=== PATIENT | female | born 1995 | race American Indian/Alaskan Native ===

== ENCOUNTER 2019-07-15 01:08 | Inpatient (IN) | payer OTHER ==
[2019-07-15] MEDS ORDERED: Sodium Chloride 0.9% 10 ML Syringe FLUSH PRN (01:36)
[2019-07-15] MEDS ORDERED: Lidocaine 1% 30 ML SDV INJECT PRN (01:36)
[2019-07-15] MEDS ORDERED: Tranexamic Acid 1,000 MG in Sodium Chloride 0.9% 100 ML IV PRN (01:36)
[2019-07-15] MEDS ORDERED: Lactated Ringers 1,000 ML IV ONE (01:36)
[2019-07-15] MEDS ORDERED: fentaNYL 100 MCG/2 ML SDV IVPUSH PRN (01:36)
[2019-07-15] MEDS ORDERED: Misoprostol 400 MCG (4 X 100 MCG TAB) RECTAL PRN (01:36)
[2019-07-15] MEDS ORDERED: Methylergonovine 0.2 MG/1 ML Amp IM PRN (01:36)
[2019-07-15] MEDS ORDERED: Acetaminophen 325 MG Tab PO PRN (01:36)
[2019-07-15] MEDS ORDERED: Carboprost Tromethamine 250 MCG/1 ML Amp IM PRN (01:36)
[2019-07-15] MEDS ORDERED: Ondansetron 4 MG/2 ML SDV IV PRN (01:36)
[2019-07-15] MEDS ORDERED: Nalbuphine 10 MG/1 ML Vial IM PRN (01:42)
[2019-07-15] MEDS ORDERED: hydrOXYzine HCl 25 MG Tab PO PRN (01:42)
[2019-07-15] MEDS ORDERED: Oxytocin/Normal Saline 30 UNIT/500 ML BAG IV SCH (01:45)
[2019-07-15 02:51] LABS: CHLORIDE,CL 105 mmol/L (101-111); SODIUM,NA 135 mmol/L (135-145)
[2019-07-15] MEDS: Lactated Ringers 1,000 ML IV SCH ×3 (03:40→15:46)
--- NOTE | 2019-07-15 09:05 | HP ---
CHIEF COMPLAINT: Regular contractions. HISTORY OF PRESENT ILLNESS: The patient is a 23-year-old, 1, para 0, currently at 40 and 2/7 weeks gestation based on 10-week ultrasound, who presents to Labor and Delivery after reporting contractions starting around 11 p.m. on the and became more regular and stronger around 12:30 a.m. She reports some passage of mucousy discharge and no initial bleeding, but had some mild bleeding after her 1st vaginal check here. movement has been good. No chest pain, shortness of breath, headaches, blurry vision, change in her edema, right upper quadrant pain, cough, cold symptoms, or other concerns. She reports this has been uncomplicated. She has been watched for high blood pressures and baby has been noted to be measuring a little bit large. She was scheduled for induction later on this week. records show excellent dating and prior treatment with fluconazole, Zofran, and metronidazole for yeast, nausea, and bacterial vaginosis. She did receive her Tdap and influenza vaccines in April. She is rubella nonimmune. She has had anemia of and reports she is taking her iron. growth was 85th percentile at the end of May and 78th percentile near the end of June. Otherwise, blood type is O positive. Syphilis serologies, hepatitis B, HIV, hepatitis C, gonorrhea and chlamydia were all negative. Glucose tolerance test was normal with a value of 89. She did have some glucosuria noted at her 37- week visit. Total weight gain for her is only about 13 pounds. See EPIC notes for other details. PAST MEDICAL HISTORY: Methicillin-resistant Staphylococcus aureus infection, recurrent sinusitis, history of wheezing with bronchitis in the past, and childhood obesity. FAMILY HISTORY: Mother with a history of deliveries due to incompetent cervix. No actual miscarriages or stillbirths. She also has diabetes, anemia, and endometriosis. Maternal aunt had preeclampsia and is a carrier for Factor V Leiden and also had endometriosis. Several maternal relatives have had hysterectomies for dysfunctional uterine bleeding. Maternal cousin has both Factor V Leiden and von Willebrand's. Her father has diabetes, hypertension, and glaucoma. Her paternal grandparents have diabetes, hypertension, heart disease. Her maternal grandparents; grandfather had at a young age, and grandmother, they really were not certain of her history. PAST SURGICAL HISTORY: [place] teeth. SOCIAL HISTORY: The patient works in the [employer] at the [employer]. Father of the baby Hitesh Willis is involved. He is reportedly alive and well. His father is , but had diabetes, hypertension, and heart disease. Hitesh's mother has diabetes, hypertension with , and a history of some abnormal bleeding, possible bleeding disorder. The patient lives with her boyfriend and a female roommate in an apartment here in town. There are no pets in the apartment. The friend does smoke outside. MEDICATIONS: Iron and vitamin. ALLERGIES: Keflex causes hives. PHYSICAL EXAMINATION: GENERAL: This is a pleasant 23-year-old female, resting comfortably on the hospital bed. VITAL SIGNS: Weight 103.4 kg, height 5 feet 6 inches, pulse 93, blood pressure 142/82, and she is afebrile. Recheck blood pressures have been normal, most current 123/65, temperature is 97.3. HEENT: Grossly unremarkable. HEART: Regular without murmur. LUNGS: Clear to auscultation bilaterally. ABDOMEN: Soft, nontender. Bowel sounds are positive. GENITOURINARY: heart rate currently tracing at 145 beats per minute for baseline. Moderate hujf-hd-lhxj variability. Accelerations are noted. [place] showing contractions every 4 to 6 minutes. Cervix examined, on admission she was 4 cm, now she is 5 cm, about 75% effaced, anterior and to the maternal left. head was well applied and artificial rupture of membranes was performed with return of some serosanguineous fluid. EXTREMITIES: No edema, erythema, or tenderness. LABORATORY DATA: Hemoglobin 11.0, platelets 251. Complete metabolic profile remarkable for ALT of 9, alkaline phosphatase 193, and albumin of 2.9. Otherwise within normal limits. Protein-creatinine ratio is 0.12. ASSESSMENT: 1. 1, para 0, at 40 and 2/7 weeks gestation. 2. Rubella nonimmune. 3. Blood type O positive. 4. Group B Strep negative. 5. Anemia of . 6. Excessive growth. 7. History of methicillin-resistant Staphylococcus aureus. 8. Elevated blood pressures on admission, now resolved, and PIH labs negative. 9. Hypoalbuminemia. Artificial rupture of membranes performed to help her with her labor progress, 40 and 2/7 weeks gestation. PLAN: At this time, the patient is going to attempt labor without any medications for pain. She is specifically concerned about having an intrathecal because she has a history of some back pain and muscle spasms and she is fearful the intrathecal could make things worse, so she will see how she does laboring without an intrathecal, but will likely accept IV pain meds and nitrous oxide. We will watch her closely and make changes to the plan as necessary. Dr. Brantley, the patient's PCP should be back in town later on today, and I will transfer care to her at that time. [facility] /[id number]
[2019-07-15] MEDS ORDERED: EPINEPHrine 1 MG/1 ML Amp ONE (12:59)
[2019-07-15] MEDS ORDERED: fentaNYL 100 MCG/2 ML SDV ONE (12:59)
--- NOTE | 2019-07-15 13:34 | PCM.PRNOTE ---
- Free Text/Narrative Note: Requested to provide analgesia to full term patient in severe pain. Upon entering the room, patient is sitting on edge of bed complaining of severe abdominal/pelvic pain and discomfort. Procedure was discussed with patient including adverse outcomes and expectations. Pt consented to analgesia, SAB/ IT. Pt placed into a proper sitting position. Landmarks for SAB/IT were identified and marked. Hands were washed and appropriate PPE was applied. Back was prepped with betadine x3. A sterile, transparent, fenestrated drape was applied. Excess betadine was removed. Using 3 mL of a 1% lidocaine solution , a skin wheel was placed at the L2/L3 interspace. A 24 ga (4 inch) [place] spinal needle was inserted until positive for CSF. Negative for heme or paresthesias. Injected fentanyl 30 mcg, sufentanil 25 mcg, and 7.5 mg of a 0.75 % bupivacaine solution with an epi wash. Pt was placed left lateral position for approximately 20 minutes. There were zero complications or adverse outcomes. Will continue to monitor. Procedure Date & Time: 07/15/19 [id number]
--- NOTE | 2019-07-15 14:50 | PN ---
DATE: 07/15/2019 SUBJECTIVE: The patient is now comfortable with her intrathecal in place. Just prior to this, she had been too uncomfortable to tolerate contractions, was moving frequently, making it difficult to trace the baby and even get adequate tracing of the contractions. OBJECTIVE: Vital Signs: Blood pressure 119/76, pulse of 94, she is afebrile. Genitourinary: Cervix remains 5 cm dilated, 90% effaced, baby is down to maybe 0 station at this time. Head is well applied and caput is present. This is a change from when I had checked her this morning, although she is not as dilated as I would like her to be. [place]: Contractions look like they are about every 3 minutes. ASSESSMENT: 1. 1, para 0. 2. 40 and 2/7 weeks gestation. 3. Rubella nonimmune, blood type O positive, group B Strep negative. 4. Anemia of . 5. Hypoalbuminemia. 6. History of methicillin-resistant Staphylococcus aureus. 7. Elevated blood pressures with negative PIH labs. 8. Slow progress in labor. PLAN: Hopefully, baby's tracing will improve now that we have mother resting and comfortable, and we will be able to initiate some Pitocin to help labor progression at this time. I advised her to get some rest while possible and advised that she can be pushing for up to 3 to 4 hours as she is a first-time mother with intrathecal. Also, discussed with her potential risk for section including but not limited to risk of infection and plan for preoperative antibiotics, risk of bleeding with risk of blood transfusion and its inherent risks, risk of injury to internal organs and adjacent structures including but not limited to, large blood vessels, nerves, veins, uterus, ovaries, fallopian tubes, bladder, intestines, and any other adjacent structures, potential injury to the baby, potential for unforeseen complications resulting in injury to her and/or the baby and need to a hospital with higher level of care, also remote risk of . The patient's questions have been answered. [facility] /[id number]
[2019-07-15] MEDS ORDERED: Benzocaine/Menthol 20%-0.5% Spray 56 GM Canister TOP PRN (17:54)
[2019-07-15] MEDS ORDERED: Measles, Mumps & Rubella Vaccine 0.5 ML SDV SUBCUT ONE (17:54)
[2019-07-15] MEDS ORDERED: Simethicone 80 MG Tab.Chew PO PRN (17:54)
[2019-07-15] MEDS: Docusate Sodium 100 MG Cap PO PRN (19:13)
[2019-07-15] MEDS: Ibuprofen 800 MG Tab PO PRN (19:14)
--- NOTE | 2019-07-16 01:23 | DEL ---
DATE: 07/15/2019 PREPROCEDURE DIAGNOSES: 1. 40-2/7 weeks' intrauterine based on 10-week ultrasound. 2. 1, para 0. 3. Rubella immune. 4. Blood type O positive. 5. Group B strep negative. 6. Anemia of . 7. History of MRSA. 8. Elevated blood pressures with negative -induced hypertension lab. 9. Suspicion for macrosomia. However, negative testing for gestational diabetes including an admission glucose of 100. 10.Hypoalbuminemia. POSTPROCEDURE DIAGNOSES: 1. 40-2/7 weeks' intrauterine based on 10-week ultrasound. 2. 1, para 1-0-0-1. 3. Rubella immune. 4. Blood type O positive. 5. Group B strep negative. 6. Anemia of . 7. History of MRSA. 8. Elevated blood pressures with negative -induced hypertension lab. 9. Suspicion for macrosomia. However, negative testing for gestational diabetes including an admission glucose of 100. 10.Hypoalbuminemia. 11.Arrest of descent. 12.Maternal exhaustion. 13.Status post vacuum-assisted vaginal delivery. 14.Status post third-degree laceration repair. BRIEF HISTORY: A 23-year-old female admitted to the hospital with spontaneous onset of labor, underwent artificial rupture of membranes, and approximately 8 hours later was complete and started pushing. See her history and physical for full details. Pertinent diagnoses are as above. The patient's tracing during labor was primarily category 2 with limited accelerations, however, making good cervical change and not requiring augmentation. Therefore, labor was allowed to proceed. DETAILS: With the patient in dorsal lithotomy position, she had been anesthetized with intrathecal and was comfortable. She had been pushing for an hour and a half, and was suffering from maternal exhaustion, not likely to be able to proceed much longer. We had also reached arrest of descent with maternal pushing efforts. Exit strategy was available with operating room crew in-house as they were holding on a surgical case until after our delivery was completed. The patient had had adequate rest. She was having adequate contraction strength. Her bladder was empty. She was verbally consented with family in the room for indication of vacuum and expectation of increased vaginal/labial trauma; potential risks to the baby including scalp lacerations, intracranial bleeding, hemorrhaging and other complications; potential for increased risk of shoulder dystocia, increased risk of emergent need of section, and other complications. The patient verbally agreed to proceed as noted here. The probability of success was good. Baby was coming down through the canal well. Although baby was estimated to be large for gestational age, adequate pelvis was there. Baby was in the OA position. We did question if there was some asynclitism presentation and application of the vacuum was +3. Maximum application time and pop-offs had been predetermined. Maximum pressure was kept within the green zone and not exceeded. Total application time approximately 15 minutes as vacuum had been applied. There were 2 pop-offs. I took a break for a few contractions while Dr. Avery was present and was requested to help with further assessment, and during that time, I reapplied the vacuum and we successfully had a vaginal delivery. Total number of times the cup popped off was 3. Vacuum type used was Kiwi as well as the low-profile OmniCup. With the Kiwi, the cup disengaged once just because of loss of suction. First pop-off was also due to loss of suction followed by the actual pop-off itself, at which time I had switched to the low-profile cup and had 1 pop-off there, took a break from vacuum and then tried again prior to the actual delivery. Dr. Avery was en route for the delivery; however, I did manage to get the baby delivered before she arrived in a few short minutes. With the patient in dorsal lithotomy position and low-profile vacuum in place, mother delivered a viable vhutd-uai-weojhchlnhv-age female over intact perineum. Once the baby was delivered, vacuum removed and baby dried, stimulated; initially had a good cry and then readily became floppy. In order to have both hands available, I placed baby on mother's abdomen, quickly doubly clamped and cut the 3-vessel umbilical cord, and took baby to the warmer for immediate resuscitation. The nurses were doing well with the baby and baby was coming around quite quickly. Therefore, cord sample was obtained. Placenta decompressed and delivered by gentle cord traction and concomitant uterine massage. Bleeding was well controlled with good uterine tone. There was a third-degree laceration, which was repaired with 3-0 Vicryl in the usual fashion. The patient did not require any additional anesthesia as her intrathecal was working well. Mother overall tolerated the procedure very well. COMPLICATIONS: None. ESTIMATED BLOOD LOSS: 300 mL. DISPOSITION: Mother and baby to remain in the delivery room, so mother can start some . FINDINGS: Viable female , score of 3 and 8. Weight 4295 g, 9 pounds 5 ounces; length 20 inches; head circumference 13-1/2 inches; chest circumference 13 inches. [facility] /[id number]
[2019-07-16] MEDS: Ibuprofen 800 MG Tab PO PRN ×2 (03:19→15:48)
[2019-07-16] MEDS: Docusate Sodium 100 MG Cap PO PRN ×2 (08:08→21:52)
[2019-07-16] MEDS: Ferrous Sulfate 325 MG Tab PO SCH (08:08)
[2019-07-16] MEDS: Prenatal Multivitamin with Calcium/Folic Acid/Iron Tab PO SCH (08:08)
--- NOTE | 2019-07-16 11:45 | PCM.SN ---
- Free Text/Narrative Note: Post Delivery Day #1 07/16/19 Subjective: Patient is ambulating without assistance and tolerating oral intake. Her pain has been well-controlled, and her bleeding has been minimal. She has not had nausea, vomiting, blurred vision, diarrhea, shortness of breath, or any other complaints. She is . Objective: Vitals stable Gen: No distress CV: Well-perfused, 2+ distal pulses Resp: Non-labored, symmetrical chest expansion Abd: Fundus is firm and below umbilicus. Ext: Moves all extremities Well, no edema. Assessment: Status post VAVD ( day #1) with repaired 3rd degree perineal laceration who is doing well Plan: - Routine nursing - vitamin - Likely discharge tomorrow - Will follow closely Aicha Brantley MD
[2019-07-16] MEDS ORDERED: Lactated Ringers 1,000 ML IV STA (16:43)
[2019-07-16] MEDS ORDERED: fentaNYL 100 MCG/2 ML SDV IVPUSH STA (16:43)
[2019-07-17] MEDS: Ibuprofen 800 MG Tab PO PRN ×2 (00:42→08:06)
[2019-07-17] MEDS: Docusate Sodium 100 MG Cap PO PRN (08:06)
[2019-07-17] MEDS: Ferrous Sulfate 325 MG Tab PO SCH (08:06)
[2019-07-17] MEDS: Prenatal Multivitamin with Calcium/Folic Acid/Iron Tab PO SCH (08:06)
--- NOTE | 2019-07-17 09:27 | PCM.SN ---
- Free Text/Narrative Note: Progress Note/Discharge Summary Admit date: 07/15/19 Discharge date: 07/17/19 Delivering Physician: Dr. Fernandez Discharging Physician: Dr. Brantley Admission Diagnoses: 23 y/o G1 at 40w2d EGA Anemia of Active Labor Summary of Hospital Course: Savannah is a 23yo G1 at 40w2d who presented to labor and delivery on 07/15/19 around 0100 in active labor that started earlier that night. She underwent vacuum assisted vaginal delivery, for arrest of descent and maternal exhaustion , and delivered a viable weighing 4295 grams with Apgars of 3 and 8 at 1 and 5 minutes respectively. EBL was 300 mL. The patient had an unremarkable course except for 1 episode of acute severe left lower quadrant pain that started about 1615 on day 1. US was performed to rule out ovarian torsion, good blood flow was noted. She was given fentanyl for pain relief which helped and the pain did not return for the rest of her stay. By day 2, the patient was doing well; ambulating, voiding, and tolerating general diet. Her pain was well controlled with oral pain medications , and was she was discharged to home. Admission hemoglobin was 11.0 gm/dL. Discharge hemoglobin was 9.6 gm/dL. Discharge Exam: Gen: No distress, well nourished CV: Well-perfused, 2+ distal pulses Resp: Non-Labored, symmetrical chest expansion Abd: Fundus is firm and below umbilicus. Appropriately tender to palpation Ext: Moves all extremities well, no edema. Discharge (or Final) Diagnoses: 1. Intrauterine at 40w2d 2. Vacuum Assisted Vaginal Delivery 3. Anemia of Discharge Details: Admission Condition: good Discharged Condition: good Disposition: Home Discharge Medications: over the counter ibuprofen Diet: regular diet Activity: no heavy lifting for 2 weeks, pelvic rest for 6 weeks. Follow-up with Dr. Brantley in 6-8 weeks for visit. Aicha Brantley MD
[2019-07-17] MEDS ORDERED: fentaNYL 100 MCG/2 ML SDV ITHECAL ONE (11:29)
[2019-07-17] MEDS ORDERED: EPINEPHrine 1 MG/1 ML Amp ONE (11:29)
== END 2019-07-17 14:00 | disposition home or self-care (01) | DRG 768 ==
LOC: DL.OBCHECK 01:08 → OBSVTOIN 01:36 → DL.OB 01:36
PROVIDERS: ADMIT Family Medicine; ATTEND Family Medicine
PROC: 10D07Z6 Extraction of Products of Conception, Vacuum, Via Natural or Artificial Opening (ICD-10-PCS; principal; 2019-07-15)
PROC: 0DQR0ZZ Repair Anal Sphincter, Open Approach (ICD-10-PCS; 2019-07-15)
PROC: 10907ZC Drainage of Amniotic Fluid, Therapeutic from Products of Conception, Via Natural or Artificial Opening (ICD-10-PCS; 2019-07-15)
PROC: 3E0234Z Introduction of Serum, Toxoid and Vaccine into Muscle, Percutaneous Approach (ICD-10-PCS; 2019-07-15)
DX: O48.0 Post-term pregnancy (principal); Z37.0 Single live birth; O70.20 Third degree perineal laceration during delivery, unspecified; O75.81 Maternal exhaustion complicating labor and delivery; O99.02 Anemia complicating childbirth; D64.9 Anemia, unspecified; O99.284 Endocrine, nutritional and metabolic diseases complicating childbirth; E88.09 Other disorders of plasma-protein metabolism, not elsewhere classified; R03.0 Elevated blood-pressure reading, without diagnosis of hypertension; Z23 Encounter for immunization; Z3A.40 40 weeks gestation of pregnancy
CPT/HCPCS: 36415; 59300; 59409; 76856; 80053; 82570; 82947; 83615; 84156; 84550; 85027; 90471; 90707; 93975; A9270-GY; J0171; J2405; J2590; J3010; J7120

== ENCOUNTER 2020-10-23 11:59 | Emergency (ER) | payer MEDICAID, OTHER ==
--- NOTE | 2020-10-23 12:19 | EDM.PDOC ---
ED HPI GENERAL MEDICAL PROBLEM - General Stated Complaint: TOP RIGHT TOOTH. SENSITIVE / HURT Time Seen by Provider: 10/23/20 12:18 Source of Information: Reports: Patient, RN, RN Notes Reviewed History Limitations: Reports: No Limitations - History of Present Illness INITIAL COMMENTS - FREE TEXT/NARRATIVE: Patient presents to the ED via personal vehicle for complaints of pain to the sixth and seventh teeth. The patient reports the pain began approximately three days ago following her daughter accidentally striking her in the mouth with her head. She states she has trialed ibuprofen, Tylenol, salt water gargles, ice packs, and hot packs which have offered her [id number] relief of pain. She feels as though the pain is progressively worsening and characterizes the pain as an "ache." She rates the pain to these teeth as a 10/10. 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 ED EXAM, ENT - Physical Exam Exam: See Below Exam Limited By: No Limitations General Appearance: Alert, Anxious, Mild Distress (Oral pain) Eye Exam: Bilateral Eye: EOMI, Normal Inspection, PERRL (2mm) Ears: Normal External Exam, Normal Canal, Hearing Grossly Normal, Normal TMs Nose: Normal Inspection, Normal Mucousa, No Blood Mouth/Throat: Normal Teeth, Dental Pain, Dental Tenderness, Gum Swelling (To sixth and seventh teeth, anterior and posterior with erythema present to gum), Other (No throat swelling, oral ulcers, lip ulcers, pharyngeal erythema, bleeding, dental trauma, or abscess) Neck: Normal Inspection, Supple, Non-Tender, Full Range of Motion, Other (No lymphadenopathy) Respiratory/Chest: No Respiratory Distress, Lungs Clear, Normal Breath Sounds, No Accessory Muscle Use, Chest Non-Tender Cardiovascular: Normal Peripheral Pulses, Regular Rate, Rhythm, No Edema, No Gallop, No JVD, No Murmur, No Rub Neurological: Alert, Oriented, CN II-XII Intact, Normal Cognition, Normal Gait, No Motor/Sensory Deficits Psychiatric: Anxious Skin: Warm, Dry, Intact, No Rash, Erythema (To sixth and seventh gum), Other (No abscess or wound noted) Lymphatic: No Adenopathy Course - Vital Signs Last Recorded V/S: Last Vital Signs Temp 97.2 F 10/23/20 12:20 Pulse 122 H 10/23/20 12:20 Resp 16 10/23/20 12:20 BP 153/83 H 10/23/20 12:20 Pulse Ox 99 10/23/20 12:20 - Orders/Labs/Meds Meds: Medications Discontinued Medications Generic Name Dose Route Start Last Admin Trade Name Freq PRN Reason Stop Dose Admin Lidocaine HCl 15 ml 10/23/20 12:33 10/23/20 12:40 Lidocaine 2% Viscous Solution 15 Ml Cup PO 10/23/20 12:34 15 ml ONETIME ONE Administration - Re-Assessments/Exams Free Text/Narrative Re-Assessment/Exam: 10/23/20 Patient verbalized improvement in pain to teeth following viscous lidocaine. Discussed findings of gingivitis upon examination, no open oral lesions, trauma, or abscess appreciated. Reviewed the importance of dental health and establishing with a dental home. Red flag signs and symptoms with would warrant reevaluation reviewed. Patient verbalized understanding and agreement with the plan of care. Departure - Departure Time of Disposition: 12:37 Disposition: Home, Self-Care 01 Condition: Good Clinical Impression: Gingivitis - Discharge Information *PRESCRIPTION DRUG MONITORING PROGRAM REVIEWED*: Not Applicable *COPY OF PRESCRIPTION DRUG MONITORING REPORT IN PATIENT SARAI: Not Applicable Referrals: Linda Duarte MD [Primary Care Provider] - Forms: ED Department Discharge Additional Instructions: Rx: Viscous lidocaine 1.) Apply to affected area every four hours, as pain persists. 2.) Follow up with dentist early this week. 3.) You may take ibuprofen (Advil/Motrin) 400mg every six hours, as pain and swelling persists. You may also take acetaminophen (Tylenol) 650mg every six hours, as pain persists. You may stagger these medications so you are receiving a dose every three hours. 4.) Eat a soft diet while you are experiencing tooth pain.
[2020-10-23] MEDS ORDERED: Lidocaine 2% Viscous Solution 15 ML Cup PO ONE (12:33)
== END 2020-10-23 12:43 | disposition home or self-care (01) ==
LOC: DL.ED 11:59
DX: K05.10 Chronic gingivitis, plaque induced (principal); Z88.1 Allergy status to other antibiotic agents
CPT/HCPCS: 99282; 99283; A9270

== ENCOUNTER 2021-05-28 12:42 | Emergency (ER) | payer MEDICAID ==
--- NOTE | 2021-05-28 15:24 | EDM.PDOC ---
ED HPI GENERAL MEDICAL PROBLEM - General Chief Complaint: Respiratory Problem Stated Complaint: tested COVID positive Wed. Time Seen by Provider: 05/28/21 15:20 Source of Information: Reports: Patient History Limitations: Reports: No Limitations - History of Present Illness INITIAL COMMENTS - FREE TEXT/NARRATIVE: 25 y/o F c/o fatigue, cough, sob and decreased appetite since Saturday. Pt was then diagnosed with COVID on Saturday. She has been drinking lots of water. She reports she is 8 weeks and the COVID and have left her extremely fatigued. She denies gu, vision prob, abd pn, pelvic pn, vaginal discharge, diff voiding, constipation, trauma, fever, extremity pn. - Related Data Allergies Allergy/AdvReac Type Severity Reaction Status Date / Time cephalexin [From Keflex] Allergy Hives Verified 10/23/20 12:20 Home Meds: Home Meds Ferrous Sulfate [Iron] 325 mg PO DAILY 07/14/18 [History] #103/Iron Fumarate/Fa [ ] 1 tab PO DAILY 05/31/19 [History] Past Medical History - Past Health History Medical/Surgical History: Denies Medical/Surgical History HEENT History: Reports: None [employer] History: Reports: Hematologic History: Reports: Anemia - Past Surgical History HEENT Surgical History: Reports: Oral Surgery Social & Family History - Family History Family Medical History: No Pertinent Family History - Tobacco Use Tobacco Use Status *Q: Unknown Ever Used Tobacco - Caffeine Use Caffeine Use: Reports: Coffee, Soda - Recreational Drug Use Recreational Drug Use: No ED ROS GENERAL - Review of Systems Review Of Systems: Comprehensive ROS is negative, except as noted in HPI. ED EXAM, GENERAL - Physical Exam Exam: See Below Exam Limited By: No Limitations General Appearance: Alert, No Apparent Distress Ears: Normal External Exam, Normal Canal, Hearing Grossly Normal, Normal TMs Nose: Normal Inspection, Normal Mucosa, No Blood Throat/Mouth: Normal Inspection, Normal Lips, Normal Teeth, Normal Gums, Normal Oropharynx, Normal Voice, No Airway Compromise Head: Atraumatic, Normocephalic Neck: Supple, Non-Tender Respiratory/Chest: No Respiratory Distress, Lungs Clear, Normal Breath Sounds Cardiovascular: Normal Peripheral Pulses, Tachycardia GI/Abdominal: Soft, Non-Tender (Female) Exam: Deferred Rectal (Female) Exam: Deferred Back Exam: Normal Inspection Extremities: Normal Inspection, Normal Range of Motion, Non-Tender, No Pedal Edema, Normal Capillary Refill Neurological: Alert, Oriented, CN II-XII Intact, Normal Cognition, Normal Gait, Normal Reflexes, No Motor/Sensory Deficits Psychiatric: Normal Affect, Normal Mood Skin Exam: Warm, Dry, Intact, Normal Color, No Rash Course - Vital Signs Last Recorded V/S: Last Vital Signs Temp 98.1 F 05/28/21 14:59 Pulse 111 H 05/28/21 13:17 Resp 16 05/28/21 13:17 BP 147/88 H 05/28/21 13:17 Pulse Ox 100 05/28/21 13:17 - Orders/Labs/Meds Orders: Active Orders 24 hr Category Date Time Status CHLAMYDIA/GC NUCLEIC ACID AMP [MREF] Stat Lab 05/28/21 17:08 Ordered CULTURE URINE [RM] Stat Lab 05/28/21 15:30 Received Labs: Laboratory Tests 05/28/21 05/28/21 05/28/21 Range/Units 15:30 15:30 15:56 WBC 5.7 (5.0-10.0) 10^3/uL RBC 4.85 (4.2-5.4) 10^6/uL Hgb 13.5 D (12.0-16.0) g/dL Hct 41.4 (37.0-47.0) % MCV 85.4 (80-100) fL MCH 27.8 (27.0-34.0) pg MCHC 32.6 L (33.0-35.0) g/dL Plt Count 227 (150-450) 10^3/uL Neut % (Auto) 69.9 (42.2-75.2) % Lymph % (Auto) 19.5 L (20.5-50.1) % [place] % (Auto) 10.2 H (2-8) % Eos % (Auto) 0.2 L (1.0-3.0) % Baso % (Auto) 0.2 (0.0-1.0) % Sodium (136-145) mmol/L Potassium (3.5-5.1) mmol/L Chloride (98-107) mmol/L Carbon Dioxide (21-32) mmol/L Anion Gap (7-13) mEq/L BUN (7-18) mg/dL Creatinine (0.55-1.02) mg/dL Est Cr Clr Drug Dosing mL/min Estimated GFR (MDRD) BUN/Creatinine Ratio (No establ ref range) Glucose (70-99) mg/dL Calcium (8.5-10.1) mg/dL Magnesium (1.8-2.4) mg/dL Total Bilirubin (0.2-1.0) mg/dL AST (15-37) U/L ALT (14-59) U/L Alkaline Phosphatase (46-116) U/L Total Protein (6.4-8.2) g/dL Albumin (3.4-5.0) g/dL Globulin Albumin/Globulin Ratio Urine Color Yellow (YELLOW) Urine Appearance Turbid (CLEAR) Urine pH 6.0 (5.0-9.0) Ur Specific Club[place] >= 1.030 (1.005-1.030) Urine Protein 30 H (NEGATIVE) Urine Glucose (UA) Negative (NEGATIVE) Urine Ketones >=160 H (NEGATIVE) Urine Occult Blood Trace-intact H (NEGATIVE) Urine Nitrite Negative (NEGATIVE) Urine Bilirubin Negative (NEGATIVE) Urine Urobilinogen 0.2 (0.2-1.0) mg/dL Ur Leukocyte Esterase Large H (NEGATIVE) Urine RBC 0-5 (0-5) /HPF Urine WBC 0-5 (0-5/HPF) /HPF Ur Epithelial Cells Many H (NOT SEEN) /HPF Urine Bacteria Many H (0-FEW/HPF) /HPF Urine Opiates Screen Negative (NEGATIVE) Ur Oxycodone Screen Negative (NEGATIVE) Urine Methadone Screen Negative (NEGATIVE) Ur Barbiturates Screen Negative (NEGATIVE) U Tricyclic Antidepress Negative (NEGATIVE) Ur Phencyclidine Scrn Negative (NEGATIVE) Ur Amphetamine Screen Negative (NEGATIVE) U Methamphetamines Scrn Negative (NEGATIVE) Urine MDMA Screen Negative (NEGATIVE) U Benzodiazepines Scrn Negative (NEGATIVE) Urine Cocaine Screen Negative (NEGATIVE) U Marijuana (THC) Screen Negative (NEGATIVE) 05/28/21 Range/Units 15:56 WBC (5.0-10.0) 10^3/uL RBC (4.2-5.4) 10^6/uL Hgb (12.0-16.0) g/dL Hct (37.0-47.0) % MCV (80-100) fL MCH (27.0-34.0) pg MCHC (33.0-35.0) g/dL Plt Count (150-450) 10^3/uL Neut % (Auto) (42.2-75.2) % Lymph % (Auto) (20.5-50.1) % [place] % (Auto) (2-8) % Eos % (Auto) (1.0-3.0) % Baso % (Auto) (0.0-1.0) % Sodium 137 (136-145) mmol/L Potassium 3.7 (3.5-5.1) mmol/L Chloride 101 (98-107) mmol/L Carbon Dioxide 23 (21-32) mmol/L Anion Gap 16.7 H (7-13) mEq/L BUN 7 (7-18) mg/dL Creatinine 0.62 (0.55-1.02) mg/dL Est Cr Clr Drug Dosing 132.11 mL/min Estimated GFR (MDRD) > 60 BUN/Creatinine Ratio 11.3 (No establ ref range) Glucose 78 (70-99) mg/dL Calcium 8.3 L (8.5-10.1) mg/dL Magnesium 2.1 (1.8-2.4) mg/dL Total Bilirubin 0.3 (0.2-1.0) mg/dL AST 26 (15-37) U/L ALT 44 (14-59) U/L Alkaline Phosphatase 97 (46-116) U/L Total Protein 7.9 (6.4-8.2) g/dL Albumin 3.6 (3.4-5.0) g/dL Globulin 4.3 Albumin/Globulin Ratio 0.8 Urine Color (YELLOW) Urine Appearance (CLEAR) Urine pH (5.0-9.0) Ur Specific [place] (1.005-1.030) Urine Protein (NEGATIVE) Urine Glucose (UA) (NEGATIVE) Urine Ketones (NEGATIVE) Urine Occult Blood (NEGATIVE) Urine Nitrite (NEGATIVE) Urine Bilirubin (NEGATIVE) Urine Urobilinogen (0.2-1.0) mg/dL Ur Leukocyte Esterase (NEGATIVE) Urine RBC (0-5) /HPF Urine WBC (0-5/HPF) /HPF Ur Epithelial Cells (NOT SEEN) /HPF Urine Bacteria (0-FEW/HPF) /HPF Urine Opiates Screen (NEGATIVE) Ur Oxycodone Screen (NEGATIVE) Urine Methadone Screen (NEGATIVE) Ur Barbiturates Screen (NEGATIVE) U Tricyclic Antidepress (NEGATIVE) Ur Phencyclidine Scrn (NEGATIVE) Ur Amphetamine Screen (NEGATIVE) U Methamphetamines Scrn (NEGATIVE) Urine MDMA Screen (NEGATIVE) U Benzodiazepines Scrn (NEGATIVE) Urine Cocaine Screen (NEGATIVE) U Marijuana (THC) Screen (NEGATIVE) - Re-Assessments/Exams Free Text/Narrative Re-Assessment/Exam: 05/28/21 17:09 I discussed the exam and lab findings with the pt and explained that she has a bacterial infection in her vagina. I will put the pt on Flagyl and have her follow up with her primary care facility next week. Departure - Departure Time of Disposition: 17:15 Disposition: Home, Self-Care 01 Condition: Good Clinical Impression: Bacterial vaginosis - Discharge Information *PRESCRIPTION DRUG MONITORING PROGRAM REVIEWED*: Not Applicable *COPY OF PRESCRIPTION DRUG MONITORING REPORT IN PATIENT SARAI: Not Applicable Instructions: Bacterial Vaginosis Forms: ED Department Discharge Additional Instructions: RX: Flagyl Use tylenol for pain and fever control as needed. Follow up with your primary care facility after your COVID quarantine is over. If any new symptoms or concerns develop contact your primary care facility or return to the ER. Sepsis Event Note (ED) - Evaluation Sepsis Screening Result: No Definite Risk - Focused Exam Vital Signs: Vital Signs Temp Pulse Resp BP Pulse Ox 05/28/21 14:59 98.1 F 05/28/21 13:17 111 H 16 147/88 H 100 - My Orders Last 24 Hours: My Active Orders 05/28/21 15:30 CULTURE URINE [RM] Stat 05/28/21 17:08 CHLAMYDIA/GC NUCLEIC ACID AMP [MREF] Stat - Assessment/Plan Last 24 Hours: My Active Orders 05/28/21 15:30 CULTURE URINE [RM] Stat 05/28/21 17:08 CHLAMYDIA/GC NUCLEIC ACID AMP [MREF] Stat
[2021-05-28 16:17] LABS: AMPHETAMINES,URINE NEGATIVE (NEGATIVE); BARBITURATES,URINE NEGATIVE (NEGATIVE); BENZODIAZEPINE,URINE NEGATIVE (NEGATIVE); MDMA (ECSTASY), URINE NEGATIVE (NEGATIVE); METHADONE,URINE NEGATIVE (NEGATIVE); METHAMPHETAMINES,URINE NEGATIVE (NEGATIVE); OPIATES,URINE NEGATIVE (NEGATIVE); OXYCODONE,URINE NEGATIVE (NEGATIVE); PHENCYCLIDINE,URINE NEGATIVE (NEGATIVE); TCA,URINE NEGATIVE (NEGATIVE)
[2021-05-28 16:26] LABS: ANION GAP 16.7 mEq/L (7-13); CHLORIDE,CL 101 mmol/L (98-107); SODIUM,NA 137 mmol/L (136-145)
[2021-05-28] MEDS ORDERED: metroNIDAZOLE 250 MG Tab PO ONE (17:24)
[2021-05-30 12:52] LABS: C.TRACHOMATIS BY TMA Negative (Negative); N.GONORRHOEAE BY TMA Negative (Negative)
== END 2021-05-28 19:20 | disposition home or self-care (01) ==
LOC: DL.ED 12:42
DX: O23.591 Infection of other part of genital tract in pregnancy, first trimester (principal); B96.89 Other specified bacterial agents as the cause of diseases classified elsewhere; O99.011 Anemia complicating pregnancy, first trimester; D64.9 Anemia, unspecified; Z88.1 Allergy status to other antibiotic agents; Z79.899 Other long term (current) drug therapy; Z3A.08 8 weeks gestation of pregnancy
CPT/HCPCS: 36415; 80053; 80305-QW; 81001; 83735; 85025; 87086; 87491; 87591; 99284

== ENCOUNTER 2021-12-28 07:20 | Inpatient (IN) | payer BC, MEDICAID ==
[2021-12-28] MEDS ORDERED: Misoprostol 25 MCG (1/4 of 100 MCG) Tab VAG STA (07:23)
[2021-12-28] MEDS ORDERED: Methylergonovine 0.2 MG/1 ML Amp IM PRN (09:50)
[2021-12-28] MEDS ORDERED: Sodium Chloride 0.9% 10 ML Syringe FLUSH PRN (09:50)
[2021-12-28] MEDS ORDERED: Carboprost Tromethamine 250 MCG/1 ML Amp IM PRN (09:50)
[2021-12-28] MEDS ORDERED: Lidocaine 1% 30 ML SDV INJECT PRN (09:50)
[2021-12-28] MEDS ORDERED: Misoprostol 400 MCG (4 X 100 MCG TAB) RECTAL PRN (09:50)
[2021-12-28] MEDS ORDERED: Ondansetron 4 MG/2 ML SDV IVPUSH PRN (09:50)
[2021-12-28] MEDS ORDERED: Tranexamic Acid 1,000 MG in Sodium Chloride 0.9% 100 ML IV PRN (09:50)
[2021-12-28] MEDS ORDERED: Butorphanol 2 MG/ML SDV IVPUSH PRN ×2 (09:58)
[2021-12-28] MEDS ORDERED: fentaNYL 100 MCG/2 ML SDV IVPUSH PRN (09:58)
[2021-12-28] MEDS ORDERED: Lactated Ringers 1,000 ML IV SCH (10:00)
[2021-12-28] MEDS ORDERED: Lactated Ringers 1,000 ML IV ONE (10:00)
[2021-12-28] MEDS ORDERED: Oxytocin/Normal Saline 30 UNIT/500 ML BAG IV SCH (10:30)
[2021-12-28] MEDS ORDERED: Misoprostol 25 MCG (1/4 of 100 MCG) Tab VAG ONE (13:33)
[2021-12-28] MEDS ORDERED: fentaNYL 100 MCG/2 ML SDV ONE (22:45)
[2021-12-28] MEDS ORDERED: fentaNYL 100 MCG/2 ML SDV ITHECAL ONE (22:50)
[2021-12-29] MEDS ORDERED: Acetaminophen 325 MG Tab PO PRN (01:36)
[2021-12-29] MEDS ORDERED: Ibuprofen 800 MG Tab PO PRN (01:36)
[2021-12-29] MEDS ORDERED: Simethicone 80 MG Tab.Chew PO PRN (01:36)
[2021-12-29] MEDS ORDERED: Oxytocin 10 Units/1 ML SDV IM PRN (01:36)
[2021-12-29] MEDS ORDERED: Benzocaine/Menthol 20%-0.5% Spray 78 GM Cannister TOP PRN (01:36)
[2021-12-29] MEDS: Docusate Sodium 100 MG Cap PO PRN (08:30)
[2021-12-29] MEDS: Prenatal Multivitamin with Calcium/Folic Acid/Iron Tab PO SCH (08:30)
[2021-12-29] MEDS: Acetaminophen 325 MG Tab PO PRN ×2 (12:26→17:46)
[2021-12-30] MEDS: Acetaminophen 325 MG Tab PO PRN ×3 (05:41→20:47)
[2021-12-30] MEDS: Prenatal Multivitamin with Calcium/Folic Acid/Iron Tab PO SCH (10:41)
[2021-12-30] MEDS: Docusate Sodium 100 MG Cap PO PRN ×2 (10:41→20:47)
[2021-12-31] MEDS: Acetaminophen 325 MG Tab PO PRN ×2 (05:38→09:57)
[2021-12-31] MEDS: Prenatal Multivitamin with Calcium/Folic Acid/Iron Tab PO SCH (09:56)
[2021-12-31] MEDS: Docusate Sodium 100 MG Cap PO PRN (09:57)
[2021-12-31] MEDS ORDERED: Measles, Mumps & Rubella Vaccine 0.5 ML SDV SUBCUT ONE (12:03)
== END 2021-12-31 15:45 | disposition home or self-care (01) | DRG 560 ==
LOC: DL.OB 07:45
PROVIDERS: ADMIT Family Medicine; ATTEND Family Medicine
PROC: 10907ZC Drainage of Amniotic Fluid, Therapeutic from Products of Conception, Via Natural or Artificial Opening (ICD-10-PCS; principal; 2021-12-29)
PROC: 10E0XZZ Delivery of Products of Conception, External Approach (ICD-10-PCS; 2021-12-29)
PROC: 0KQM0ZZ Repair Perineum Muscle, Open Approach (ICD-10-PCS; 2021-12-29)
PROC: 3E033VJ Introduction of Other Hormone into Peripheral Vein, Percutaneous Approach (ICD-10-PCS; 2021-12-29)
PROC: 3E0R3BZ Introduction of Anesthetic Agent into Spinal Canal, Percutaneous Approach (ICD-10-PCS; 2021-12-29)
DX: O99.02 Anemia complicating childbirth (principal); O70.1 Second degree perineal laceration during delivery; Z37.0 Single live birth; Z20.822 Contact with and (suspected) exposure to COVID-19; D64.9 Anemia, unspecified; Z3A.39 39 weeks gestation of pregnancy; Z86.16 Personal history of COVID-19; O69.81X0 Labor and delivery complicated by cord around neck, without compression, not applicable or unspecified
CPT/HCPCS: 36415; 59409; 85027; 86592; 90471; 90707; A9270-GY; J0595; J2405; J2590; J3010; J7120; U0002

== ENCOUNTER 2022-06-24 10:00 | Emergency (ER) | payer MEDICAID ==
[2022-06-24 11:59] LABS: CORONAVIRUS COVID-19 NAA POSITIVE (NEGATIVE)
== END 2022-06-24 13:07 | disposition home or self-care (01) ==
LOC: DL.ED 10:00
DX: U07.1 COVID-19 (principal)
CPT/HCPCS: 0240U; 99283

== ENCOUNTER 2023-03-03 10:55 | Emergency (ER) | payer MEDICAID ==
[2023-03-03 11:40] LABS: BASOPHILS PERCENT AUTO 0.2 % (0.0-1.0); EOSINOPHILS PERCENT AUTO 2.6 % (1.0-3.0); HEMOGLOBIN 12.8 g/dL (12.0-16.0); LYMPHOCYTES PERCENT AUTO 22.2 % (20.5-50.1); MEAN CORPUSCULAR HEMOGLOBIN 28.4 pg (27.0-34.0); MEAN CORPUSCULAR HGB CONC 32.8 g/dL (33.0-35.0); MEAN CORPUSCULAR VOLUME 86.5 fL (80-100); MONOCYTES PERCENT AUTO 6.6 % (2-8); NEUTROPHILS PERCENT AUTO 68.4 % (42.2-75.2); PLATELET COUNT,PLT 309 10^3/uL (150-450); RED BLOOD CELL COUNT 4.51 10^6/uL (4.2-5.4); WHITE BLOOD CELL COUNT,WBC 9.5 10^3/uL (5.0-10.0)
[2023-03-03 12:04] LABS: LACTIC ACID 1.1 mmol/L (0.4-2.0)
[2023-03-03 12:06] LABS: HCG QUALITATIVE,SERUM NEGATIVE (NEGATIVE)
[2023-03-03 12:11] LABS: A/G RATIO 0.9; ALANINE AMINOTRANSFERASE,ALT 39 U/L (14-59); ALBUMIN 3.8 g/dL (3.4-5.0); ALKALINE PHOSPHATASE 115 U/L (46-116); ASPARTATE AMNIOTRANSFERASE,AST 22 U/L (15-37); BILIRUBIN TOTAL 0.4 mg/dL (0.2-1.0); BLOOD UREA NITROGEN,BUN 12 mg/dL (7-18); C-REACTIVE PROTEIN 2.4 mg/dL (0.0-0.9); CALCIUM 8.8 mg/dL (8.5-10.1); CARBON DIOXIDE,CO2 26 mmol/L (21-32); CHLORIDE,CL 104 mmol/L (98-107); CREATININE 0.63 mg/dL (0.55-1.02); GLUCOSE RANDOM 117 mg/dL (70-99); MAGNESIUM 2.5 mg/dL (1.8-2.4); PROTEIN TOTAL,TP 8.2 g/dL (6.4-8.2); SODIUM,NA 141 mmol/L (136-145); TSH ULTRASENSITIVE 0.67 uIU/mL (0.36-3.74)
[2023-03-03 12:12] LABS: ESTIMATED GFR 126 mL/min (>=60); ETHANOL BLOOD MEDICAL < 3 mg/dL (0)
[2023-03-03] MEDS ORDERED: Ondansetron 4 MG/2 ML SDV IVPUSH ONE (12:18)
[2023-03-03 13:28] LABS: APPEARANCE,URINE CLEAR (CLEAR); BILIRUBIN,URINE NEGATIVE (NEGATIVE); COLOR,URINE YELLOW (YELLOW); GLUCOSE,URINE NEGATIVE (NEGATIVE); KETONES,URINE NEGATIVE (NEGATIVE); LEUKOCYTE ESTERASE,URINE TRACE (NEGATIVE); NITRITE,URINE NEGATIVE (NEGATIVE); OCCULT BLOOD,URINE MODERATE (NEGATIVE); PROTEIN,URINE 30 (NEGATIVE); UROBILINOGEN,URINE 0.2 mg/dL (0.2-1.0)
[2023-03-03 13:31] LABS: AMPHETAMINES,URINE NEGATIVE (NEGATIVE); BARBITURATES,URINE NEGATIVE (NEGATIVE); BENZODIAZEPINE,URINE NEGATIVE (NEGATIVE); MDMA (ECSTASY), URINE NEGATIVE (NEGATIVE); METHADONE,URINE NEGATIVE (NEGATIVE); METHAMPHETAMINES,URINE NEGATIVE (NEGATIVE); OPIATES,URINE NEGATIVE (NEGATIVE); OXYCODONE,URINE NEGATIVE (NEGATIVE); PHENCYCLIDINE,URINE NEGATIVE (NEGATIVE); TCA,URINE NEGATIVE (NEGATIVE)
[2023-03-03 13:37] LABS: BACTERIA,URINE FEW /HPF (0-FEW/HPF); EPITHELIAL CELLS,URINE MODERATE /HPF (NOT SEEN); MUCUS,URINE FEW /LPF (NOT SEEN); RBC,URINE 0-5 /HPF (0-5)
== END 2023-03-03 14:10 | disposition home or self-care (01) ==
LOC: DL.ED 10:55
DX: R11.14 Bilious vomiting (principal); Z88.1 Allergy status to other antibiotic agents
CPT/HCPCS: 36415; 80053; 80305; 80307; 81001; 83605; 83735; 84443; 84484; 84703; 85025; 86140; 87086; 93005; 93010; 96374; 99284; J2405

== ENCOUNTER 2024-05-24 20:30 | Emergency (ER) | payer BC, MEDICAID ==
[2024-05-24] MEDS ORDERED: Sodium Chloride 0.9% 10 ML Syringe FLUSH PRN (20:47)
[2024-05-24] MEDS: diazePAM 5 MG/ML MDV IV ONE (21:09)
[2024-05-24] MEDS: Ketorolac 30 MG/ML SDV IVPUSH ONE (21:27)
[2024-05-24] MEDS: Take Home: Cyclobenzaprine 10 MG Tab, 4 Tab Pack PO ONE (21:53)
== END 2024-05-24 21:56 | disposition home or self-care (01) ==
LOC: DL.ED 20:30
DX: M62.830 Muscle spasm of back (principal); Z88.1 Allergy status to other antibiotic agents
CPT/HCPCS: 96374; 96375; 99283; A9270; J1885; J3360

== ENCOUNTER 2025-04-12 00:31 | Inpatient (IN) | payer BC, MEDICAID ==
[2025-04-12 08:47] LABS: BASOPHILS PERCENT AUTO 0.2 % (0.0-1.0); EOSINOPHILS PERCENT AUTO 1.1 % (1.0-3.0); LYMPHOCYTES PERCENT AUTO 32.8 % (20.5-50.1); MONOCYTES PERCENT AUTO 7.4 % (2-8); NEUTROPHILS PERCENT AUTO 58.5 % (42.2-75.2); PLATELET COUNT,PLT 240 10^3/uL (150-450); RED BLOOD CELL COUNT 4.16 10^6/uL (4.2-5.4); WHITE BLOOD CELL COUNT,WBC 8.1 10^3/uL (5.0-10.0)
[2025-04-12] MEDS ORDERED: Sodium Chloride 0.9% 10 ML Syringe FLUSH PRN (08:47)
[2025-04-12] MEDS ORDERED: Carboprost Tromethamine 250 MCG/1 ML Amp IM PRN (08:47)
[2025-04-12] MEDS: Lactated Ringers 1,000 ML IV SCH (09:15)
[2025-04-12] MEDS: Oxytocin/Normal Saline 30 UNIT/500 ML BAG IV SCH (09:15)
[2025-04-12] MEDS: fentaNYL 100 MCG/2 ML SDV IVPUSH PRN (16:54)
[2025-04-12] MEDS ORDERED: Oxytocin 10 Units/1 ML SDV IM PRN (19:00)
[2025-04-12] MEDS ORDERED: ePHEDrine 50 MG/ML SDV IVPUSH PRN (19:02)
[2025-04-12] MEDS: Ondansetron 4 MG/2 ML SDV IVPUSH PRN (19:02)
[2025-04-12] MEDS ORDERED: Ropivacaine 200 MG in Premix Bag 1 BAG EPIDUR SCH (19:15)
[2025-04-12] MEDS: Witch Hazel Medicated Pads 100/Jar TOP PRN (19:27)
[2025-04-12] MEDS: Benzocaine/Menthol 20%-0.5% Spray 78 GM Cannister TOP PRN (19:28)
[2025-04-12] MEDS: Lactated Ringers 1,000 ML IV ONE (20:11)
[2025-04-13 06:21] LABS: PLATELET COUNT,PLT 215.0 10^3/uL (150-450); RED BLOOD CELL COUNT 3.49 10^6/uL (4.2-5.4); WHITE BLOOD CELL COUNT,WBC 12.6 10^3/uL (5.0-10.0)
[2025-04-13] MEDS: Prenatal Multivitamin with Calcium/Folic Acid/Iron Tab PO SCH (07:35)
[2025-04-13 12:42] LABS: C.TRACHOMATIS BY TMA Positive (Negative); N.GONORRHOEAE BY TMA Negative (Negative)
[2025-04-14] MEDS ORDERED: Ondansetron 4 MG/2 ML SDV IV ONE (12:17)
[2025-04-14] MEDS ORDERED: Ketorolac 30 MG/ML SDV IVPUSH ONE (12:17)
[2025-04-14] MEDS ORDERED: Ropivacaine 100 ML EPIDUR ONE (12:17)
[2025-04-14] MEDS ORDERED: fentaNYL 100 MCG/2 ML SDV EPIDUR ONE (12:17)
== END 2025-04-14 13:00 | disposition home or self-care (01) | DRG 806 ==
LOC: DL.OB 08:27 → OBSVTOIN 18:29
PROVIDERS: ADMIT Family Medicine; ATTEND Family Medicine
PROC: 10E0XZZ Delivery of Products of Conception, External Approach (ICD-10-PCS; principal; 2025-04-12)
PROC: 4A1HXCZ Monitoring of Products of Conception, Cardiac Rate, External Approach (ICD-10-PCS; 2025-04-12)
PROC: 3E0R3BZ Introduction of Anesthetic Agent into Spinal Canal, Percutaneous Approach (ICD-10-PCS; 2025-04-12)
PROC: 00HU33Z Insertion of Infusion Device into Spinal Canal, Percutaneous Approach (ICD-10-PCS; 2025-04-12)
PROC: 3E033VJ Introduction of Other Hormone into Peripheral Vein, Percutaneous Approach (ICD-10-PCS; 2025-04-12)
PROC: 10907ZC Drainage of Amniotic Fluid, Therapeutic from Products of Conception, Via Natural or Artificial Opening (ICD-10-PCS; 2025-04-12)
DX: O99.02 Anemia complicating childbirth (principal); O98.32 Other infections with a predominantly sexual mode of transmission complicating childbirth; Z37.0 Single live birth; Z3A.39 39 weeks gestation of pregnancy; A56.2 Chlamydial infection of genitourinary tract, unspecified
CPT/HCPCS: 01967; 36415; 59409; 85025; 85027; 87491; 87591; A9270-GY; J1885; J2405; J2590; J2765; J2795; J3010; J7120

== ENCOUNTER 2025-05-03 12:11 | Emergency (ER) | payer MEDICAID ==
[2025-05-03] MEDS: Ketorolac 30 MG/ML SDV IM ONE (12:50)
== END 2025-05-03 13:26 | disposition home or self-care (01) ==
LOC: DL.ED 12:11
DX: M54.50 Low back pain, unspecified (principal); Z79.899 Other long term (current) drug therapy; Z88.1 Allergy status to other antibiotic agents
CPT/HCPCS: 96372; 99282; 99283; J1885

== ENCOUNTER 2025-05-04 14:46 | Emergency (ER) | payer MEDICAID | END 2025-05-04 17:54 | disposition home or self-care (01) | LOC: DL.ED 14:46 | DX: F41.9 Anxiety disorder, unspecified (principal); Z88.1 Allergy status to other antibiotic agents; Z79.899 Other long term (current) drug therapy | CPT/HCPCS: 36415; 85379; 99283; 99284 ==

== ENCOUNTER 2025-06-25 18:54 | Emergency (ER) | payer MEDICAID ==
[2025-06-25 20:21] LABS: BASOPHILS PERCENT AUTO 0.5 % (0.0-1.0); EOSINOPHILS PERCENT AUTO 2.6 % (1.0-3.0); LYMPHOCYTES PERCENT AUTO 28.5 % (20.5-50.1); MONOCYTES PERCENT AUTO 6.8 % (2-8); NEUTROPHILS PERCENT AUTO 61.6 % (42.2-75.2); PLATELET COUNT,PLT 289 10^3/uL (150-450); RED BLOOD CELL COUNT 3.92 10^6/uL (4.2-5.4); WHITE BLOOD CELL COUNT,WBC 10.4 10^3/uL (5.0-10.0)
== END 2025-06-25 22:06 | disposition home or self-care (01) ==
LOC: DL.ED 18:54
DX: O20.0 Threatened abortion (principal); Z88.1 Allergy status to other antibiotic agents; Z79.899 Other long term (current) drug therapy; Z86.16 Personal history of COVID-19
CPT/HCPCS: 36415; 84702; 85025; 99284